=== PATIENT | female | born 1950 | race Hispanic/Latino ===

== ENCOUNTER 2021-01-06 09:21 | Emergency (ER) | payer BC, OTHER ==
--- OUTSIDE RECORDS SUMMARY | 2021-01-06 09:25 | XMS REPORT | Continuity of Care Document ---
:[address] [facility] t Address [address] [place] [address] Care Team Providers Name Role Phone Unavailable Unavailable Unavailable Problems This patient has no known problems. Allergies, Adverse Reactions, Alerts This patient has no known allergies or adverse reactions. Medications Ordered Filled Start Stop Current Ordering Indication Dosage Frequency Signature Comments Components Source Medication Medication Date Date Medication? Clinician (SIG) Name Name GlipiZIDE GlipiZIDE 2018-07 Yes Na Davis [address] [facility] meal [facility] Ciprodex Ciprodex Yes Na Davis [address] [facility] 2[facility]13 into [facility] 00:[facility]: affected [facility] 00 ear l [facility] Crestor Crestor 2017-07 Yes Na Davis [address] [facility] 1[facility]13 [facility]: [facility] Nicotine Nicotine 2017-07 Yes Na Davis [address] [facility] Step 1 Step 1 1-13 skin [facility] 00:[facility]: [facility] l [facility] Fosamax Fosamax 2019- No Na Davis [address] [facility] 7-19 05-12 [facility] - 00:00: 00:00 [facility] 00 :00 l [facility] Lancets Lancets Yes Na Davis one [facility] Super Thin Super Thin 4-12 Vega es - 00:00: [facility]oria 00 l [facility] blood blood 2020- No Na Davis one [facility] glucose glucose 4-12 02-06 [facility] - test strip test strip 00:00: 00:00 Memoria 00 :[address] [facility] [address] [facility] Alcohol Alcohol 2020- No Na Davis as [facility] Prep Pads Prep Pads 10-24 directed [facility] - 00:00: 00:00 Memoria 00 :[address] [facility] [address] [facility] Ambien Ambien Yes Na Davis [address] [facility] at bedtime [facility] - as needed [facility] One Daily One Daily Yes Na Davis [address] [facility] Protonix Protonix Yes Na Davis [address] [facility] Cozaar Cozaar Yes Na Davis [address] [facility] FreeStyle FreeStyle Yes Na Davis USE ONE [facility] Lite Test Lite Test STRIP TO L ukes - TEST TWICE Memoria A DAY [facility] ent [facility] Yes Na Davis [address] FlexTouch FlexTouch [facility] Fenofibrate Fenofibrate Yes Na Davis [address] [facility] with food [facility] Metformin Metformin Yes Na Davis [address] [facility] HCl [facility] Plavix Plavix Yes Na Davis [address] [facility] Nicotine Nicotine Yes Na Davis [address] [facility] Step 1 Step 1 skin [facility] Immunizations Ordered Filled Immunization Date Status Comments [facility] e Immunization Name Name FluAD FluAD 2019-05-[address] [facility] 00:[facility]00 [facility] Prevnar 13 Prevnar 13 2018-05-[address] [facility] - -Pneumonia Vaccine -Pneumonia Vaccine 00:00:00 [facility] FluAD FluAD 2018-05-[address] [facility]00 [facility] Procedures This patient has no known procedures. Encounters Start End Encounter Admission Attending Care Care Encounter Source Date/Time Date/Time Type Type Clinicians Facility Department ID 2020-07-27 2020-07-27 [facility] [id number] 2020-07-12 2020-07-12 Outpatient [facility] [id number] [facility] 2020-06-24 2020-06-24 [facility] [id number] [facility] 2020-06-16 2020-06-16 Out[facility] [id number] [facility] 2020-06-13 2020-06-13 Out[facility] [id number] [facility] 2020-03-29 2020-03-29 [facility] [id number] 2019-08-11 2019-08-11 [facility] [id number] [address] 08:20:00 08:20:00 t [employer] [facility] Medicine l Medicine Outpati ent Clinics 2019-08-03 2019-08-03 [facility] [id number] 16:22:00 16:22:00 t [employer] - Drive [facility] Medicine l Medicine Outpati ent Clinics 2019-06-17 2019-06-17 [facility] [id number] [address] 09:54:00 09:54:00 t [employer] - Drive [facility] Family Medicine l Medicine Outpati ent Clinics 2019-05-11 2019-05-11 [facility] [id number] 09:20:00 09:20:00 t [employer] - Drive [facility] Family Medicine l Medicine Outpati ent Clinics 2019-01-06 2019-01-06 [facility] [id number] 14:40:00 14:40:[address] [facility] Medicine l Medicine Outpati ent Clinics 2018-08-27 2018-08-27 [facility] [id number] 08:15:00 08:15:00 t [employer] [facility] Outpati ent Clinics 2018-05-27 2018-05-27 [facility] [id number] 09:15:00 09:15:00 t [employer] [facility] 2018-01-30 2018-01-30 [facility] [id number] 10:00:00 10:00:00 [employer] [facility] 2017-10-24 2017-10-24 [facility] [id number] 15:30:00 15:30:00 t [employer] [facility] Results This patient has no known results.
[2021-01-06 10:00] LABS: Urine Blood Trace-intact (Negative); Urine Glucose Negative (Negative); Urine Protein Negative (Negative)
[2021-01-06] MEDS ORDERED: MORPHINE 2 MG/ML SYR ONE (10:16)
[2021-01-06] MEDS ORDERED: NA CHLORIDE 0.9% 1,000 ML ONE (10:16)
[2021-01-06] MEDS ORDERED: ONDANSETRON 4 MG/2 ML VIAL ONE (10:16)
[2021-01-06 10:29] LABS: Absolute Lymphocytes (CBC) 1.7 K/uL (0.7-4.9); Basophils % 0.6 % (0-1.3); Hematocrit 38.8 % (36.0-45.0); MPV 9.6 fL (7.6-11.3); RBC Red Blood Cell Count 4.34 M/uL (3.86-4.86)
[2021-01-06 11:26] LABS: Albumin 4.4 g/dL (3.4-5.0); Bilirubin Direct 0.1 mg/dL (0-0.2); Bilirubin Total 0.4 mg/dL (0.2-1.0); Potassium 4.1 mmol/L (3.5-5.1); Protein, Total 7.5 g/dL (6.4-8.2)
[2021-01-06 11:55] LABS: Urine Bacteria <20 /HPF (<20); Urine RBC <5 /HPF (NONE SEEN)
--- NOTE | 2021-01-06 11:55 | RAD REPORT ---
EXAM DESCRIPTION: CT - Abdomen Pelvis W Contrast - 01/06/2021 11:36 am CLINICAL HISTORY: Abdominal pain COMPARISON: none. TECHNIQUE: Computed axial tomography of the abdomen pelvis was obtained. 100 cc Isovue-300 was admin istered intravenously. Oral contrast was not requested which limits evaluation of bowel. All CT scans are performed using dose optimization technique as appropriate and may include automated exposure control or mA/KV adjustment according to patient size. FINDINGS: Fatty liver. Hepatomegaly. The spleen, pancreas, adrenals are unremarkable. Mild right hydronephrosis. Tiny right renal calculi and small renal cysts. 3.3 centimeter calculus is present within the bladder. A portion abuts the right UVJ. Small left renal calculi. Mild left hydronephrosis. 1.1 centimeter calculus within the posterior left bladder near midline. Diverticula stem from the colon. Mild stranding adjacent to the sigmoid colon indicative of diverticu litis. Small right inguinal hernia contains fat Small ventral hernia contains fat. 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 A portion abuts the right UVJ. Mild right hy dronephrosis 1.1 centimeter calculus within the posterior left bladder near midline probably has recently passed f rom the left ureter. Mild left hydronephrosis Mild sigmoid diverticulitis Fatty infiltration with hepatomegaly
--- NOTE | 2021-01-06 12:28 | ER ---
Nurse's Notes [facility] Name: Rosalia Perez Age: 70 yrs Sex: Female : 1950 Arrival Date: 01/06/2021 Time: 09:24 Bed 20 Private MD: Diagnosis: Calculus of kidney;Calculus in bladder-multiple;Diverticulitis of large intestine without perforation or abscess without bleeding Presentation: 01/06 09:35 Chief complaint: Patient states: Pain in left lower quadrant of abdomen radiating to kg left flank and back x 1month. Coronavirus screen: Client denies travel out of the [place] in the last 14 days. At this time, unable to obtain information related to travel outside the [place] At this time, the client does not indicate any symptoms associated with coronavirus-19. Ebola Screen: Patient negative for fever greater than or equal to 101.5 degrees Fahrenheit, and additional compatible Ebola Virus Disease symptoms Patient denies exposure to infectious person. Patient denies travel to an Ebola-affected area in the 21 days before illness onset. Initial Sepsis Screen: Does the patient meet any 2 criteria? No. Patient's initial sepsis screen is negative. Does the patient have a suspected source of infection? No. Patient's initial sepsis screen is negative. Risk Assessment: Do you want to hurt yourself or someone else? Patient reports no desire to harm self or others. Onset of symptoms was December 06, 2020. 09:35 Method Of Arrival: Ambulatory kg 09:35 Acuity: JUDE 3 kg Historical: - Allergies: 09:39 No Known Allergies; kg - PMHx: 09:39 Diabetes - NIDDM; Hyperlipidemia; Hypertension; breast cancer; kg - PSHx: 09:39 Mastectomy, Left; kg - Immunization history:: Adult Immunizations up to date, Client reports receiving the 2nd dose of the Covid vaccine. - Social history:: Smoking status: Patient denies any tobacco usage or history of. Screenin:46 Abuse screen: Denies threats or abuse. Denies injuries from another. Nutritional kg screening: No deficits noted. Tuberculosis screening: No symptoms or risk factors identified. Fall Risk None identified. No fall in past 12 months (0 pts). No secondary diagnosis (0 pts). IV access (20 points). Ambulatory Aid- None/Bed Rest/Nurse Assist (0 pts). Gait- Normal/Bed Rest/Wheelchair (0 pts) Mental Status- Oriented to own ability (0 pts). Total [place] Fall Scale indicates No Risk (0-24 pts). Assessment: 09:40 General: Appears in no apparent distress. Behavior is calm, cooperative, appropriate kg for age, quiet. Pain: Complains of pain in left lower quadrant Pain radiates to left low back and left mid back,left flank Pain currently is 7 out of 10 on a pain scale. at worst was 10 out of 10 on a pain scale. level that patient reports is acceptable is 3 out of 10 on a pain scale. Quality of pain is described as aching, crampy, sharp, shooting, Pain began one month ago. Neuro: No deficits noted. Level of Consciousness is awake, alert, obeys commands, Oriented to person, place, time, situation, Appropriate for age. Cardiovascular: No deficits noted. Heart tones S1 S2 Capillary refill < 3 seconds. Respiratory: No deficits noted. Airway is patent Trachea midline Respiratory effort is even, unlabored, relaxed, Respiratory pattern is regular, symmetrical, Breath sounds are clear bilaterally. GI: Abdomen is flat, Bowel sounds present X 4 quads. Abd is soft Reports lower abdominal pain, constipation. : No deficits noted. : No deficits noted. Reports urinary frequency. EENT: No deficits noted. EENT: No deficits noted. Derm: No deficits noted. Musculoskeletal: No deficits noted. 12:29 Reassessment: Patient appears in no apparent distress at this time. Patient and/or zb family updated on plan of care and expected duration. Pain level reassessed. Patient is alert, oriented x 3, equal unlabored respirations, skin warm/dry/pink. pain decreased. no n/v noted at this time. PO challenge completed. patient ambulatory. at bedside. IV medication infusing at this time. 12:30 Reassessment: d/c pending completion of IV medication. zb 13:06 Reassessment: Patient appears in no apparent distress at this time. Patient and/or zb family updated on plan of care and expected duration. Pain level reassessed. Patient is alert, oriented x 3, equal unlabored respirations, skin warm/dry/pink. patient d/c up ad sharad. Vital Signs: 09:31 BP 157 / 76; Pulse 85; Resp 17; Pulse Ox 100% on R/A; kg 09:35 BP 157 / 76; Pulse 88; Resp 18; Temp 98.5(O); Pulse Ox 99% on R/A; Weight 69.4 kg (R); kg Height 5 ft. 5 in. (165.10 cm) (R); Pain 7/10; 09:45 BP 153 / 64; Pulse 78; Resp 18; Pulse Ox 100% on R/A; kg 10:08 BP 137 / 60; Pulse 78; Resp 20; Pulse Ox 100% on R/A; kg 10:15 BP 157 / 67; Pulse 78; Resp 20; Pulse Ox 100% ; kg 10:30 BP 145 / 62; Pulse 73; Resp 20; Pulse Ox 100% ; kg 11:00 BP 145 / 63; Pulse 75; Resp 18; Pulse Ox 99% on R/A; kg 09:35 Body Mass Index 25.46 (69.40 kg, 165.10 cm) kg ED Course: 09:24 Patient arrived in ED. wm 09:28 Olvin Cho PA is PHCP. cp 09:28 Olvin Ward MD is Attending Physician. cp 09:35 Norma Hansen, MARCO is Primary Nurse. kg 09:38 Triage completed. kg 09:47 Arm band placed on right wrist. kg 09:47 Patient has correct armband on for positive identification. Placed in gown. Bed in low kg position. Call light in reach. Side rails up X2. Adult w/ patient. No stick or BP on left arm. 09:50 Inserted saline lock: 20 gauge in right forearm, using aseptic technique. kg 10:29 Basic Metabolic Panel Sent. kg 10:29 CBC with Diff Sent. kg 10:29 Hepatic Function Sent. kg 10:29 Lipase Sent. kg 11:35 CT Abd/Pelvis - IV Contrast Only In Process Unspecified. EDMS 12:27 Kristian Alvarado MD is Referral Physician. cp 13:06 No provider procedures requiring assistance completed. IV discontinued, intact, zb bleeding controlled, No redness/swelling at site. Pressure dressing applied. 13:07 Primary Nurse role handed off by Norma Hansen, RN zb 13:07 Steffany Gómez RN is Primary Nurse. zb Administered Medications: 10:11 Drug: NS 0.9% 500 ml Route: IV; Rate: bolus; Site: right forearm; kg 12:29 Follow up: Response: No adverse reaction; IV Status: Completed infusion; IV Intake: zb 500ml 10:11 Drug: morphine 2 mg Route: IVP; Site: right forearm; kg 12:29 Follow up: Response: No adverse reaction; Marked relief of symptoms; Pain is decreased zb 10:11 Drug: Zofran (Ondansetron) 4 mg Route: IVP; Site: right forearm; kg 12:28 Follow up: Response: No adverse reaction; Marked relief of symptoms; Nausea is decreasedzb 12:28 Drug: metroNIDAZOLE 500 mg Volume: 100 ml; Route: IVPB; Infused Over: 30 mins; Site: zb right antecubital; 13:07 Follow up: Response: No adverse reaction; Marked relief of symptoms; IV Status: zb Completed infusion; IV Intake: 100ml 12:28 Drug: Cipro (ciprofloxacin) 500 mg Route: PO; zb 13:07 Follow up: Response: No adverse reaction zb Intake: 12:29 IV: 500ml; Total: 500ml. zb 13:07 IV: 100ml; Total: 600ml. zb Outcome: 12:27 Discharge ordered by MD. cp 13:06 Discharged to home ambulatory, with family. zb 13:06 Condition: stable 13:06 Discharge instructions given to patient, family, Instructed on discharge instructions, follow up and referral plans. medication usage, Demonstrated understanding of instructions, follow-up care, medications, Prescriptions given X 4. 13:08 Patient left the ED. zb Signatures: Dispatcher [employer] EDMS Olvin Cho PA PA cp Brown, Zipporah, RN RN zNorma Escalona RN RN kg Norma Hobson Corrections: (The following items were deleted from the chart) 12:31 12:29 Reassessment: Patient appears in no apparent distress at this time. Patient zb and/or family updated on plan of care and expected duration. Pain level reassessed. Patient is alert, oriented x 3, equal unlabored respirations, skin warm/dry/pink. pain decreased. no n/v noted at this time. patient ambulatory. at bedside. IV medication infusing at this time. zb
--- NOTE | 2021-01-06 12:28 | EDPHYS ---
Physician Documentation [facility] Name: Rosalia Perez Age: 70 yrs Sex: Female : 1950 Arrival Date: 01/06/2021 Time: 09:24 Bed 20 Private MD: ED Physician Olvin Ward HPI: 01/06 09:38 This 70 yrs old Female presents to ER via Ambulatory with complaints of cp Abdominal Pain - LEFT SIDE. 09:38 The patient presents with abdominal pain in the left lower quadrant. cp 09:38 Onset: The symptoms/episode began/occurred 1 month(s) ago, and became persistent 3 days cp ago. The symptoms radiate to the left flank. Associated signs and symptoms: Pertinent negatives: nausea and vomiting, blood in stools, constipation, diarrhea, dysuria, fever. The symptoms are described as intermittent. 09:38 Severity of pain: in the emergency department the pain is unchanged despite home cp interventions. Historical: - Allergies: 09:39 No Known Allergies; kg - PMHx: 09:39 Diabetes - NIDDM; Hyperlipidemia; Hypertension; breast cancer; kg - PSHx: 09:39 Mastectomy, Left; kg - Immunization history:: Adult Immunizations up to date, Client reports receiving the 2nd dose of the Covid vaccine. - Social history:: Smoking status: Patient denies any tobacco usage or history of. ROS: 09:45 Abdomen/GI: Positive for abdominal pain, Negative for vomiting, diarrhea, black/tarry cp stool, rectal bleeding. 09:45 Eyes: Negative for injury, pain, redness, and discharge. cp 09:45 Constitutional: Negative for body aches, chills, fever. 09:45 Cardiovascular: Negative for chest pain. 09:45 Respiratory: Negative for cough, shortness of breath, wheezing. 09:45 Back: Positive for radiated pain, of the left flank. 09:45 : Negative for urinary symptoms. 09:45 Neuro: Negative for dizziness, numbness, weakness. 09:45 All other systems are negative. Exam: 09:50 Constitutional: The patient appears in no acute distress, alert, awake, non-toxic, well cp developed, well nourished. 09:50 Head/Face: Normocephalic, atraumatic. cp 09:50 Eyes: Periorbital structures: appear normal, Conjunctiva: normal, no exudate, no injection, Sclera: no appreciated abnormality, Lids and lashes: appear normal, bilaterally. 09:50 ENT: External ear(s): are unremarkable, Nose: is normal, Mouth: Lips: moist, Oral mucosa: moist, Posterior pharynx: Airway: no evidence of obstruction, patent. 09:50 Chest/axilla: Inspection: normal. 09:50 Cardiovascular: Rate: normal, Rhythm: regular, Edema: is not appreciated, JVD: is not appreciated. 09:50 Respiratory: the patient does not display signs of respiratory distress, Respirations: normal, no use of accessory muscles, no retractions, labored breathing, is not present, Breath sounds: are clear throughout, no decreased breath sounds, no stridor, no wheezing. 09:50 Abdomen/GI: Inspection: abdomen appears normal, Bowel sounds: active, all quadrants, Palpation: soft, in all quadrants, mild abdominal tenderness, in the left lower quadrant, rebound tenderness, is not appreciated, voluntary guarding, is not appreciated, involuntary guarding, is not appreciated. 09:50 Back: CVA tenderness, is absent. 09:50 Skin: no rash present. Vital Signs: 09:31 BP 157 / 76; Pulse 85; Resp 17; Pulse Ox 100% on R/A; kg 09:35 BP 157 / 76; Pulse 88; Resp 18; Temp 98.5(O); Pulse Ox 99% on R/A; Weight 69.4 kg (R); kg Height 5 ft. 5 in. (165.10 cm) (R); Pain 7/10; 09:45 BP 153 / 64; Pulse 78; Resp 18; Pulse Ox 100% on R/A; kg 10:08 BP 137 / 60; Pulse 78; Resp 20; Pulse Ox 100% on R/A; kg 10:15 BP 157 / 67; Pulse 78; Resp 20; Pulse Ox 100% ; kg 10:30 BP 145 / 62; Pulse 73; Resp 20; Pulse Ox 100% ; kg 11:00 BP 145 / 63; Pulse 75; Resp 18; Pulse Ox 99% on R/A; kg 09:35 Body Mass Index 25.46 (69.40 kg, 165.10 cm) kg MDM: 09:34 Patient medically screened. cp 10:00 Differential diagnosis: Pyelonephritis, Ureterolithiasis, urinary tract infection, cp diverticulitis. 12:07 ED course: review of [place] prescription monitor program website shows narcotic score cp 080, sedative score 181 and overdose risk score 000. 12:25 Data reviewed: vital signs, nurses notes, lab test result(s), radiologic studies, CT cp scan. 12:25 Counseling: I had a detailed discussion with the patient and/or guardian regarding: the cp historical points, exam findings, and any diagnostic results supporting the discharge/admit diagnosis, lab results, radiology results. 12:26 Response to treatment: the patient's symptoms have markedly improved after treatment, cp VSS. Pain improved with meds. Will discharge to home for continued monitoring. 01/06 09:39 Order name: Basic Metabolic Panel; Complete Time: 12:01 01/06 12:01 Interpretation: Normal except: GLUC 190; GFR 72. 01/06 09:39 Order name: CBC with Diff; Complete Time: 11:14 01/06 11:14 Interpretation: Reviewed. 01/06 09:39 Order name: Hepatic Function; Complete Time: 12:01 01/06 12:01 Interpretation: Normal except: AST 14. 01/06 09:39 Order name: Lipase; Complete Time: 12:01 01/06 09:39 Order name: Urine Microscopic Only; Complete Time: 12:01 01/06 09:59 Order name: Urine Dipstick-Ancillary; Complete Time: 10:17 EDMS 01/06 10:30 Interpretation: Normal except: UBLD Trace-intact; UESTR Trace. 01/06 09:39 Order name: IV Saline Lock; Complete Time: 10:11 01/06 09:39 Order name: Labs collected and sent; Complete Time: 10:12 01/06 10:17 Order name: CT Abd/Pelvis - IV Contrast Only; Complete Time: 12:01 01/06 09:39 Order name: Urine Dipstick-Ancillary (obtain specimen); Complete Time: 10:11 01/06 12:04 Order name: PO challenge; Complete Time: 12:28 cp Administered Medications: 10:11 Drug: NS 0.9% 500 ml Route: IV; Rate: bolus; Site: right forearm; kg 12:29 Follow up: Response: No adverse reaction; IV Status: Completed infusion; IV Intake: zb 500ml 10:11 Drug: morphine 2 mg Route: IVP; Site: right forearm; kg 12:29 Follow up: Response: No adverse reaction; Marked relief of symptoms; Pain is decreased zb 10:11 Drug: Zofran (Ondansetron) 4 mg Route: IVP; Site: right forearm; kg 12:28 Follow up: Response: No adverse reaction; Marked relief of symptoms; Nausea is decreasedzb 12:28 Drug: metroNIDAZOLE 500 mg Volume: 100 ml; Route: IVPB; Infused Over: 30 mins; Site: zb right antecubital; 13:07 Follow up: Response: No adverse reaction; Marked relief of symptoms; IV Status: zb Completed infusion; IV Intake: 100ml 12:28 Drug: Cipro (ciprofloxacin) 500 mg Route: PO; zb 13:07 Follow up: Response: No adverse reaction zb Disposition: 15:12 Co-signature as Attending Physician, Olvin Ward MD I agree with the assessment and heidy plan of care. Disposition: 01/06/21 12:27 Discharged to Home. Impression: Calculus of kidney, Calculus in bladder - multiple, Diverticulitis of large intestine without perforation or abscess without bleeding. - Condition is Stable. - Discharge Instructions: High-Fiber Diet, Diverticulitis, Kidney Stones. - Prescriptions for Zofran 4 mg Oral Tablet - take 1 tablet by ORAL route every 12 hours As needed; 20 tablet. Cipro 500 mg Oral Tablet - take 1 tablet by ORAL route every 12 hours for 10 days; 20 tablet. Metronidazole 500 mg Oral Tablet - take 1 tablet by ORAL route every 8 hours; 30 tablet. Tramadol 50 mg Oral Tablet - take 1 tablet by ORAL route every 8 hours as needed; 12 tablet. - Medication Reconciliation Form, Thank You Letter, Antibiotic Education, Prescription Opioid Use form. - Follow up: Kristian Alvarado MD; When: 2 - 3 days; Reason: Recheck today's complaints. Signatures: Dispatcher [employer] Olvin Huff MD MD cha Page, Corey, PA PA cp Brown, Zipporah, RN RN zb Graham, Kristen, RN RN kg Corrections: (The following items were deleted from the chart) 12:44 12:27 01/06/2021 12:27 Discharged to Home. Impression: Diverticular disease of cp intestine. Condition is Stable. Forms are Medication Reconciliation Form, Thank You Letter, Antibiotic Education, Prescription Opioid Use. Follow up: Kristian Alvarado; When: 2 - 3 days; Reason: Recheck today's complaints. cp 13:08 12:44 01/06/2021 12:27 Discharged to Home. Impression: Calculus of kidney; Calculus in zb bladder - multiple; Diverticulitis of large intestine without perforation or abscess without bleeding. Condition is Stable. Forms are Medication Reconciliation Form, Thank You Letter, Antibiotic Education, Prescription Opioid Use. Follow up: Kristian Alvarado; When: 2 - 3 days; Reason: Recheck today's complaints. cp
[2021-01-06] MEDS ORDERED: CIPROFLOXACIN 400mg IV 0 MG/0 ML BAG IV ONE (12:37)
[2021-01-06] MEDS ORDERED: METRONIDAZOLE 500mg IVPB 500 MG/100 ML BAG IV ONE (12:37)
[2021-01-06] MEDS ORDERED: CIPROFLOXACIN HCL 500 MG TAB ONE (12:44)
[2021-01-06 13:16] VITALS: TEMP 98.5
[2021-01-06 13:24] VITALS: BP 145/63; O2SAT 99
== END 2021-01-06 13:08 | disposition home or self-care (01) ==
LOC: ER 09:21
DX: N20.0 Calculus of kidney (principal); N21.0 Calculus in bladder; K57.32 Diverticulitis of large intestine without perforation or abscess without bleeding; I10 Essential (primary) hypertension; Z85.3 Personal history of malignant neoplasm of breast; Z90.12 Acquired absence of left breast and nipple
CPT/HCPCS: 85025; 80048; 36415; 80076; 83690; 74177; Q9967; J2270; J7030; J2405; 81003; 81015; 96361; 96365; 96375; 99284; J0744

== ENCOUNTER 2022-05-06 10:15 | Emergency (ER) | payer OTHER ==
--- OUTSIDE RECORDS SUMMARY | 2022-05-06 10:19 | XMS REPORT | Continuity of Care Document ---
:1950 Author Organization [facility] t Address [address] [place] [address] Care Team Providers Name Role Phone Ratna Davis Primary Care Physician Ratna Davis Attending Clinician Unavailable TATIANNA GARCIA Attending Clinician Unavailable Doctor Unassigned, [place] Attending Clinician Unavailable Tatianna Garcia MD Attending Clinician Nurse, Adc Pob Immunization Attending Clinician Unavailable Christopher Lowery DO Attending Clinician Amelia-Mbayo_A_AH Attending Clinician Unavailable Ige-Odunuga_J_AH Attending Clinician Unavailable Amelia-Mbayo_A_AH Admitting Clinician Unavailable Ige-Odunuga_J_AH Admitting Clinician Unavailable Payers Payer Name Policy Type Policy Number Effective Date Expiration Date S thuy[place] POS [id number] 2013 00:00:00 [facility] [place] [id number] 2020 PLUS CLASSIC NO 00:00:00 [facility] [id number] 2019 Common Spiri t 00:00:00 - [facility] C1 [id number] 2019 Common Spiri t 00:00:00 [facility] WellCare MCR C1 [id number] 2019 Common Spiri t 00:00:00 - [facility] WELLCARE OF [place] [id number] 2019 - [place] 00:00:00 (MEDICARE REPLACEMENT/ADV ANTAGE - HMO) Problems Condition Condition Condition Status Onset Resolution Last Treating Co mments Source Name Details Category Date Date Treatment Clinician Date [id number] Bladder Problem Common stones [facility] [id number] Ureterolit Problem Com mon hiasis [facility] [id number] 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 - [facility] e [facility] Insomnia Insomnia Problem Commo n [facility] Current Current Problem Common every day every day Spir it smoker smoker [facility] Diabetes Diabetes Problem Commo n mellitus mellitus [facility] Hypertensi Hypertensi Problem C ommon on on [facility] [id number] PAD Problem Common (periphera Spirit l artery - [facility]I disease) [facility] Hyperlipid Hyperlipem Problem C ommon aemia ia [facility] [id number] Osteoporos Problem Com mon is without Spirit current - [facility] pathologic [facility] fracture, Medical unspecifie Center d osteoporos is type [id number] Tobacco Problem Commo n use [facility] [id number] Tobacco Problem Common abuse Spirit counseling [facility] Kidney Kidney Problem Common stone stone [facility] [id number] Type 2 Problem Common diabetes Spirit mellitus - 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 - [facility]I insulin [facility] [id number] Anxiety Problem Common [facility] [id number] Diverticul Problem Co mmon itis [facility] Fatty Fatty Problem Common liver liver [facility] [id number] Gastritis Problem Commo n without Spirit bleeding, - [facility]I unspecifie [facility] chronicity Medica l , Center unspecifie d gastritis type No known No known Disease Unive rs active active ity of problems problems [facility] Allergies, Adverse Reactions, Alerts This patient has no known allergies or adverse reactions. Social History Social Habit Start Date Stop Date Quantity Comments Source History of Current Smoker Common Spi rit - Tobacco Use [facility] Sex Assigned At Common Sp mila - [facility] Exposure to 2021-11-19 2021-11-29 Not sure University of SARS-CoV-2 00:00:00 10:45:00 [facility] (event) Branch Tobacco use and 2021-11-02 2021-11-02 Never used Universit y of exposure 00:00:00 00:00:00 [facility] Smoking Status Start Date Stop Date Source Current Smoker 2022-03-28 00:00:00 [facility] Spiri [facility] Medications Ordered Filled Start Stop Current Ordering Indication Dosage Frequency Signature Comments Components Source Medication Medication Date Date Medication? Clinician (SIG) Name Name Nakia Rice No 1{table QD Ambien 10 MG MG 9-14 t_at_be MG 00:00: dtime_a 00 s_neede d} Ambien 10 Ambien 10 No 1{table QD Ambien 10 MG MG 9-14 t_at_be MG 00:00: dtime_a 00 s_neede d} Ambien 10 Asherien 10 No 1{table QD Ambien 10 MG MG 6-03 t_at_be MG 00:00: dtime_a 00 s_neede d} amLODIPine Yes 5mg Take 5 mg Un marisela 5 mg tablet 4-21 by mouth ity of 13:23: daily. [address] amLODIPine Yes 5mg Take 5 mg Un marisela 5 mg tablet 4-21 by mouth ity of 13:23: daily. [address] amLODIPine Yes 5mg Take 5 mg Un marisela 5 mg tablet 4-21 by mouth ity of 13:23: daily. [address] fenofibrate Yes 145mg Take 145 U nivers 145 mg 4-21 mg by ity of tablet 13:23: mouth. [address] metFORMIN Yes 500mg Take 500 Uni vers 500 mg 4-21 mg by ity of tablet 13:23: mouth. [address] fenofibrate 0 Yes 145mg Take 145 U nivers 145 mg 4-21 mg by ity of tablet 13:23: mouth. [address] metFORMIN 0 Yes 500mg Take 500 Uni vers 500 mg 4-21 mg by ity of tablet 13:23: mouth. [address] fenofibrate 0 Yes 145mg Take 145 U nivers 145 mg 4-21 mg by ity of tablet 13:23: mouth. [address] metFORMIN 0 Yes 500mg Take 500 Uni vers 500 mg 4-21 mg by ity of tablet 13:23: mouth. [address] pantoprazol Yes Univer s e 40 mg EC 3-28 ity of tablet 00:00: [address] pantoprazol 0 Yes Univer s e 40 mg EC 3-28 ity of tablet 00:00: [address] pantoprazol 0 Yes Univer s e 40 mg EC 3-28 ity of tablet 00:00: [address] Ambien 10 Ambien 10 0 No 1{table QD Ambien 10 MG MG 3-02 t_at_be MG 00:00: dtime_a 00 s_neede d} Ambien 10 Ambien 10 0 No 1{table QD Ambien 10 MG MG 3-02 t_at_be MG 00:00: dtime_a 00 s_neede d} clopidogreL 0 Yes Univer s 75 mg 3-02 ity of tablet 00:00: [address] rosuvastati 2021-0 Yes Univer s n 10 mg 3-02 ity of tablet 00:00: [address] SERTraline 2021-0 Yes Univers 50 mg 3-02 ity of tablet 00:00: [address] clopidogreL 2021-0 Yes Univer s 75 mg 3-02 ity of tablet 00:00: [address] rosuvastati 2021-0 Yes Univer s n 10 mg 3-02 ity of tablet 00:00: [address] SERTraline 2021-0 Yes Univers 50 mg 3-02 ity of tablet 00:00: [address] clopidogreL 2022-0 Yes Univer s 75 mg 3-02 ity of tablet 00:00: [facility] rosuvastati 2021-0 Yes Univer s n 10 mg 3-02 ity of tablet 00:00: [address] Branch SERTraline 2021-0 Yes Univers 50 mg 3-02 ity of tablet 00:00: [facility] Zolpidem Zolpidem 2021-0 No Zolpidem Tartrate 10 Tartrate 10 2-09 Tartrate MG MG 00:00: 10 MG 00 Zolpidem Zolpidem 2021-0 No Zolpidem Tartrate 10 Tartrate 10 2-09 Tartrate MG MG 00:00: 10 MG 00 Zolpidem Zolpidem 2021-0 No Zolpidem Tartrate 10 Tartrate 10 2-09 Tartrate MG MG 00:00: 10 MG 00 glipiZIDE 2021-0 Yes 10mg Take 10 mg Un marisela 10 mg 2-02 by mouth ity of tablet 00:00: daily. [facility] glipiZIDE 2021-0 Yes 10mg Take 10 mg Un marisela 10 mg 2-02 by mouth ity of tablet 00:00: daily. [facility] glipiZIDE 2021-0 Yes 10mg Take 10 mg Un marisela 10 mg 2-02 by mouth ity of tablet 00:00: daily. [address] losartan 2-0 Yes Univers 100 mg 2-01 ity of tablet 00:00: [address] losartan 2-0 Yes Univers 100 mg 2-01 ity of tablet 00:00: [address] losartan 2-0 Yes Univers 100 mg 2-01 ity of tablet 00:00: [address] GlipiZIDE GlipiZIDE 2019-1 Yes Na Davis 1 tablet Common 0-28 with main Spirit 00:00: meal - [facility]I 00 [facility] Ciprodex Ciprodex 2019-0 Yes Na Davis 4 drops Common 2-13 into Spirit 00:00: affected - CHI 00 ear [facility] Crestor Crestor 2018-1 Yes Na Davis 1 tablet Common 1-13 Spirit 00:00: - CHI 00 [facility] Nicotine Nicotine 2018- Yes Na Davis 1 patch to Common Step 1 Step 1 1-13 skin Spirit 00:00: - CHI 00 [facility] Fosamax Fosamax 2017-0 2019- No Na Davis 1 tablet Common 01-30 Spirit 00:00: 00:00 - CHI 00 :00 [facility] Lancets Lancets Yes Na Davis one Comm on Super Thin Super Thin 10-24 Spi rit 00:00: - [facility] blood blood 2020- No Na Davis one Common glucose glucose 10-24 Spirit test strip test strip 00:00: 00:00 - CHI 00 :00 [facility] Alcohol Alcohol 2020- No Na Davis as Com mon Prep Pads Prep Pads 10-24 directed Spirit 00:00: 00:00 - CHI 00 :00 [facility] Ambien Ambien Yes Na Davis 1 tablet Comm on at bedtime [facility] as needed [facility] One Daily One Daily Yes Na Davis 1 tablet [facility] Protonix Protonix Yes Na Davis 1 tablet [facility] Cozaar Cozaar Yes Na Davis 1 tablet Comm on [facility] FreeStyle FreeStyle Yes Na Davis USE ONE Common Lite Test Lite Test STRIP TO S pirit TEST TWICE - CHI A DAY [facility] Na Davis 10 units Co mmon FlexTouch FlexTouch Spiri [facility] Fenofibrate Fenofibrate Yes Na Davis 1 tablet Common with food [facility] Metformin Metformin Yes Na Davis 1 tablet Common HCl HCl with meals [facility] Plavix Plavix Yes Na Davis 1 tablet Comm on [facility] Nicotine Nicotine Yes Na Davis 1 patch to Common Step 1 Step 1 skin [facility] Plavix 75 Plavix 75 No 1{table QD Plavix 75 MG MG t} MG glipiZIDE 5 glipiZIDE 5 No 1{table BID glipiZIDE MG MG t_with_ 5 MG food} blood blood No blood glucose glucose glucose test strip test strip test strip n/s n/s n/s Fosamax 70 Fosamax 70 No 1{table Fosamax 70 MG MG t} MG Zoloft 50 Zoloft 50 No 1{table QD Zoloft 50 MG MG t} MG Ambien 10 Ambien 10 No 1{table QD Ambien 10 MG MG t_at_be MG dtime_a s_neede d} One Daily - One Daily - No 1{table QD One Daily t} - Crestor 10 Crestor 10 No 1{table QD Crestor 10 MG MG t} MG OneTouch OneTouch No OneTouch Verio - Verio - Verio - glipiZIDE glipiZIDE No QD glipiZIDE 10 MG 10 MG 10 MG Plavix 75 Plavix 75 No 1{table QD Plavix 75 MG MG t} MG Ciprodex Ciprodex No 4{drops BID Ciprodex 0.3-0.1 % 0.3-0.1 % _into_a 0.3-0.1 % ffected _ear} glipiZIDE glipiZIDE No QD glipiZIDE 10 MG 10 MG 10 MG One Daily - One Daily - No 1{table QD One Daily t} - Nicotine Nicotine No 1{patch QD Nicotine Step 1 21 Step 1 _to_ski Step 1 21 MG/24HR MG/24HR n} MG/24HR glipiZIDE 5 glipiZIDE 5 No 1{table BID glipiZIDE MG MG t_with_ 5 MG food} OneTouch OneTouch No OneTouch Verio - Verio - Verio - amLODIPine amLODIPine No 1{table QD amLODIPine Besylate 10 Besylate 10 t} Besylate MG MG 10 MG FreeStyle FreeStyle No FreeStyle Lite Test - Lite Test - Lite Test - Fosamax 70 Fosamax 70 No 1{table Fosamax 70 MG MG t} MG Protonix 20 Protonix 20 No 1{table QD Protonix MG MG t} 20 MG Cozaar 100 Cozaar 100 No 1{table QD Cozaar 100 MG MG t} MG Lancets Lancets No BID Lancets Super Thin Super Thin Super Thin n/s n/s n/s Nicotine Nicotine No 1{patch QD Nicotine Step 1 21 Step 1 21 _to_ski Step 1 21 MG/24HR MG/24HR n} MG/24HR metFORMIN metFORMIN No 1{table BID metFORMIN HCl 1000 MG HCl 1000 MG t_with_ HCl 1000 meals} MG Crestor 10 Crestor 10 No 1{table QD Crestor 10 MG MG t} MG Zoloft 50 Zoloft 50 No 1{table QD Zoloft 50 MG MG t} MG Ambien 10 Ambien 10 No 1{table QD Ambien 10 MG MG t_at_be MG dtime_a s_neede d} blood blood No blood glucose glucose glucose test strip test strip test strip n/s n/s n/s Fenofibrate Fenofibrate No 1{table QD Fenofibrat 145 MG 145 MG t_with_ e 145 MG food} glipiZIDE glipiZIDE No QD glipiZIDE 10 MG 10 MG 10 MG Nicotine Nicotine No 1{patch QD Nicotine Step 1 21 Step 1 to Step 1 21 MG/24HR MG/24HR n} MG/24HR Plavix 75 Plavix 75 No 1{table QD Plavix 75 MG MG t} MG Ciprodex Ciprodex No 4{drops BID Ciprodex 0.3-0.1 % 0.3-0.1 % _into_a 0.3-0.1 % ffected _ear} glipiZIDE 5 glipiZIDE 5 No glipiZIDE MG MG 5 MG Protonix 20 Protonix 20 No 1{table QD Protonix MG MG t} 20 MG OneTouch OneTouch No OneTouch Verio - Verio - Verio - Lancets Lancets No BID Lancets Super Thin Super Thin Super Thin n/s n/s n/s amLODIPine amLODIPine No amLODIPine Besylate 10 Besylate 10 Besylate MG MG 10 MG Nicotine Nicotine No 1{patch QD Nicotine Step 1 21 Step 1 to Step 1 21 MG/24HR MG/24HR n} MG/24HR blood blood No blood glucose glucose glucose test strip test strip test strip n/s n/s n/s Zoloft 50 Zoloft 50 No 1{table QD Zoloft 50 MG MG t} MG Fosamax 70 Fosamax 70 No 1{table Fosamax 70 MG MG t} MG metFORMIN metFORMIN No 1{table BID metFORMIN HCl 1000 MG HCl 1000 MG t_with_ HCl 1000 meals} MG Fenofibrate Fenofibrate No 1{table QD Fenofibrat 145 MG 145 MG t_with_ e 145 MG food} Losartan Losartan No Losartan Potassium Potassium Potassium 100 MG 100 MG 100 MG FreeStyle FreeStyle No FreeStyle Lite Test - Lite Test - Lite Test - One Daily - One Daily - No 1{table QD One Daily t} - Crestor 10 Crestor 10 No 1{table QD Crestor 10 MG MG t} MG Lancets Lancets No BID Lancets Super Thin Super Thin Super Thin n/s n/s n/s Nicotine Nicotine No 1{patch QD Nicotine Step 1 21 Step 1 21 _to_ski Step 1 21 MG/24HR MG/24HR n} MG/24HR glipiZIDE 5 glipiZIDE 5 No 1{table BID glipiZIDE MG MG t_with_ 5 MG food} Rosuvastati Rosuvastati No Rosuvastat n Calcium n Calcium in Calcium 10 MG 10 MG 10 MG Fenofibrate Fenofibrate No 1{table QD Fenofibrat 145 MG 145 MG t_with_ e 145 MG food} OneTouch OneTouch No OneTouch Verio - Verio - Verio - amLODIPine amLODIPine No amLODIPine Besylate 10 Besylate 10 Besylate MG MG 10 MG metFORMIN metFORMIN No 1{table BID metFORMIN HCl 1000 MG HCl 1000 MG t_with_ HCl 1000 meals} MG One Daily - One Daily - No 1{table QD One Daily t} - glipiZIDE glipiZIDE No QD glipiZIDE 10 MG 10 MG 10 MG glipiZIDE 5 glipiZIDE 5 No glipiZIDE MG MG 5 MG blood blood No blood glucose glucose glucose test strip test strip test strip n/s n/s n/s amLODIPine amLODIPine No 1{table QD amLODIPine Besylate 10 Besylate 10 t} Besylate MG MG 10 MG Fosamax 70 Fosamax 70 No 1{table Fosamax 70 MG MG t} MG FreeStyle FreeStyle No FreeStyle Lite Test - Lite Test - Lite Test - Zoloft 50 Zoloft 50 No 1{table QD Zoloft 50 MG MG t} MG Protonix 20 Protonix 20 No 1{table QD Protonix MG MG t} 20 MG Cozaar 100 Cozaar 100 No 1{table QD Cozaar 100 MG MG t} MG Ciprodex Ciprodex No 4{drops BID Ciprodex 0.3-0.1 % 0.3-0.1 % _into_a 0.3-0.1 % ffected _ear} Plavix 75 Plavix 75 No 1{table QD Plavix 75 MG MG t} MG Losartan Losartan No Losartan Potassium Potassium Potassium 100 MG 100 MG 100 MG Nicotine Nicotine No 1{patch QD Nicotine Step 1 21 Step 1 21 _to_ski Step 1 21 MG/24HR MG/24HR n} MG/24HR Lancets Lancets No BID Lancets Super Thin Super Thin Super Thin n/s n/s n/s Nicotine Nicotine No 1{patch QD Nicotine Step 1 21 Step 1 21 _to_ski Step 1 21 MG/24HR MG/24HR n} MG/24HR glipiZIDE 5 glipiZIDE 5 No 1{table BID glipiZIDE MG MG t_with_ 5 MG food} Rosuvastati Rosuvastati No Rosuvastat n Calcium n Calcium in Calcium 10 MG 10 MG 10 MG Fenofibrate Fenofibrate No 1{table QD Fenofibrat 145 MG 145 MG t_with_ e 145 MG food} OneTouch OneTouch No OneTouch Verio - Verio - Verio - amLODIPine amLODIPine No amLODIPine Besylate 10 Besylate 10 Besylate MG MG 10 MG metFORMIN metFORMIN No 1{table BID metFORMIN HCl 1000 MG HCl 1000 MG t_with_ HCl 1000 meals} MG One Daily - One Daily - No 1{table QD One Daily t} - glipiZIDE glipiZIDE No QD glipiZIDE 10 MG 10 MG 10 MG glipiZIDE 5 glipiZIDE 5 No glipiZIDE MG MG 5 MG blood blood No blood glucose glucose glucose test strip test strip test strip n/s n/s n/s amLODIPine amLODIPine No 1{table QD amLODIPine Besylate 10 Besylate 10 t} Besylate MG MG 10 MG Fosamax 70 Fosamax 70 No 1{table Fosamax 70 MG MG t} MG FreeStyle FreeStyle No FreeStyle Lite Test - Lite Test - Lite Test - Zoloft 50 Zoloft 50 No 1{table QD Zoloft 50 MG MG t} MG Protonix 20 Protonix 20 No 1{table QD Protonix MG MG t} 20 MG Cozaar 100 Cozaar 100 No 1{table QD Cozaar 100 MG MG t} MG Ciprodex Ciprodex No 4{drops BID Ciprodex 0.3-0.1 % 0.3-0.1 % _into_a 0.3-0.1 % ffected _ear} Plavix 75 Plavix 75 No 1{table QD Plavix 75 MG MG t} MG Losartan Losartan No Losartan Potassium Potassium Potassium 100 MG 100 MG 100 MG Nicotine Nicotine No 1{patch QD Nicotine Step 1 21 Step 1 21 _to_ski Step 1 21 MG/24HR MG/24HR n} MG/24HR glipiZIDE 5 glipiZIDE 5 No glipiZIDE MG MG 5 MG metFORMIN metFORMIN No 1{table BID metFORMIN HCl 1000 MG HCl 1000 MG t_with_ HCl 1000 meals} MG glipiZIDE 5 glipiZIDE 5 No 1{table BID glipiZIDE MG MG t_with_ 5 MG food} Plavix 75 Plavix 75 No 1{table QD Plavix 75 MG MG t} MG OneTouch OneTouch No OneTouch Verio - Verio - Verio - Crestor 10 Crestor 10 No 1{table QD Crestor 10 MG MG t} MG Rosuvastati Rosuvastati No Rosuvastat n Calcium n Calcium in Calcium 10 MG 10 MG 10 MG blood blood No blood glucose glucose glucose test strip test strip test strip n/s n/s n/s Zoloft 50 Zoloft 50 No 1{table QD Zoloft 50 MG MG t} MG Cozaar 100 Cozaar 100 No 1{table QD Cozaar 100 MG MG t} MG Pantoprazol Pantoprazol No 1{table QD Pantoprazo e Sodium 20 e Sodium 20 t} le Sodium MG MG 20 MG Lancets Lancets No BID Lancets Super Thin Super Thin Super Thin n/s n/s n/s Fenofibrate Fenofibrate No 1{table QD Fenofibrat 145 MG 145 MG t_with_ e 145 MG food} amLODIPine amLODIPine No 1{table QD amLODIPine Besylate 10 Besylate 10 t} Besylate MG MG 10 MG Losartan Losartan No Losartan Potassium Potassium Potassium 100 MG 100 MG 100 MG metFORMIN metFORMIN No 1{table BID metFORMIN HCl 1000 MG HCl 1000 MG t_with_ HCl 1000 meals} MG Rosuvastati Rosuvastati No Rosuvastat n Calcium n Calcium in Calcium 10 MG 10 MG 10 MG Fenofibrate Fenofibrate No 1{table QD Fenofibrat 145 MG 145 MG t_with_ e 145 MG food} Plavix 75 Plavix 75 No 1{table QD Plavix 75 MG MG t} MG Crestor 10 Crestor 10 No 1{table QD Crestor 10 MG MG t} MG Losartan Losartan No Losartan Potassium Potassium Potassium 100 MG 100 MG 100 MG OneTouch OneTouch No OneTouch Verio - Verio - Verio - amLODIPine amLODIPine No 1{table QD amLODIPine Besylate 10 Besylate 10 t} Besylate MG MG 10 MG Pantoprazol Pantoprazol No 1{table QD Pantoprazo e Sodium 20 e Sodium 20 t} le Sodium MG MG 20 MG glipiZIDE 5 glipiZIDE 5 No glipiZIDE MG MG 5 MG Lancets Lancets No BID Lancets Super Thin Super Thin Super Thin n/s n/s n/s Cozaar 100 Cozaar 100 No 1{table QD Cozaar 100 MG MG t} MG glipiZIDE 5 glipiZIDE 5 No BID glipiZIDE MG MG 5 MG blood blood No blood glucose glucose glucose test strip test strip test strip n/s n/s n/s metFORMIN metFORMIN No 1{table BID metFORMIN HCl 1000 MG HCl 1000 MG t_with_ HCl 1000 meals} MG Rosuvastati Rosuvastati No Rosuvastat n Calcium n Calcium in Calcium 10 MG 10 MG 10 MG Fenofibrate Fenofibrate No 1{table QD Fenofibrat 145 MG 145 MG t_with_ e 145 MG food} Plavix 75 Plavix 75 No 1{table QD Plavix 75 MG MG t} MG Crestor 10 Crestor 10 No 1{table QD Crestor 10 MG MG t} MG Losartan Losartan No Losartan Potassium Potassium Potassium 100 MG 100 MG 100 MG OneTouch OneTouch No OneTouch Verio - Verio - Verio - amLODIPine amLODIPine No 1{table QD amLODIPine Besylate 10 Besylate 10 t} Besylate MG MG 10 MG Pantoprazol Pantoprazol No 1{table QD Pantoprazo e Sodium 20 e Sodium 20 t} le Sodium MG MG 20 MG glipiZIDE 5 glipiZIDE 5 No glipiZIDE MG MG 5 MG Lancets Lancets No BID Lancets Super Thin Super Thin Super Thin n/s n/s n/s Cozaar 100 Cozaar 100 No 1{table QD Cozaar 100 MG MG t} MG glipiZIDE 5 glipiZIDE 5 No BID glipiZIDE MG MG 5 MG blood blood No blood glucose glucose glucose test strip test strip test strip n/s n/s n/s Ciprodex Ciprodex No 4{drops BID Ciprodex 0.3-0.1 % 0.3-0.1 % _into_a 0.3-0.1 % ffected _ear} amLODIPine amLODIPine No 1{table QD amLODIPine Besylate 10 Besylate 10 t} Besylate MG MG 10 MG Protonix 20 Protonix 20 No 1{table QD Protonix MG MG t} 20 MG FreeStyle FreeStyle No FreeStyle Lite Test - Lite Test - Lite Test - Nicotine Nicotine No 1{patch QD Nicotine Step 1 21 Step 1 21 _to_ski Step 1 21 MG/24HR MG/24HR n} MG/24HR Lancets Lancets No BID Lancets Super Thin Super Thin Super Thin n/s n/s n/s Nicotine Nicotine No 1{patch QD Nicotine Step 1 21 Step 1 21 _to_ski Step 1 21 MG/24HR MG/24HR n} MG/24HR metFORMIN metFORMIN No 1{table BID metFORMIN HCl 1000 MG HCl 1000 MG t_with_ HCl 1000 meals} MG Cozaar 100 Cozaar 100 No 1{table QD Cozaar 100 MG MG t} MG Fenofibrate Fenofibrate No 1{table QD Fenofibrat 145 MG 145 MG t_with_ e 145 MG food} Plavix 75 Plavix 75 No 1{table QD Plavix 75 MG MG t} MG glipiZIDE 5 glipiZIDE 5 No 1{table BID glipiZIDE MG MG t_with_ 5 MG food} blood blood No blood glucose glucose glucose test strip test strip test strip n/s n/s n/s Fosamax 70 Fosamax 70 No 1{table Fosamax 70 MG MG t} MG Zoloft 50 Zoloft 50 No 1{table QD Zoloft 50 MG MG t} MG Ambien 10 Ambien 10 No 1{table QD Ambien 10 MG MG t_at_be MG dtime_a s_neede d} One Daily - One Daily - No 1{table QD One Daily t} - Crestor 10 Crestor 10 No 1{table QD Crestor 10 MG MG t} MG OneTouch OneTouch No OneTouch Verio - Verio - Verio - glipiZIDE glipiZIDE No QD glipiZIDE 10 MG 10 MG 10 MG Ciprodex Ciprodex No 4{drops BID Ciprodex 0.3-0.1 % 0.3-0.1 % _into_a 0.3-0.1 % ffected _ear} amLODIPine amLODIPine No 1{table QD amLODIPine Besylate 10 Besylate 10 t} Besylate MG MG 10 MG Protonix 20 Protonix 20 No 1{table QD Protonix MG MG t} 20 MG FreeStyle FreeStyle No FreeStyle Lite Test - Lite Test - Lite Test - Nicotine Nicotine No 1{patch QD Nicotine Step 1 21 Step 1 21 _to_ski Step 1 21 MG/24HR MG/24HR n} MG/24HR Lancets Lancets No BID Lancets Super Thin Super Thin Super Thin n/s n/s n/s Nicotine Nicotine No 1{patch QD Nicotine Step 1 21 Step 1 21 _to_ski Step 1 21 MG/24HR MG/24HR n} MG/24HR metFORMIN metFORMIN No 1{table BID metFORMIN HCl 1000 MG HCl 1000 MG t_with_ HCl 1000 meals} MG Cozaar 100 Cozaar 100 No 1{table QD Cozaar 100 MG MG t} MG Fenofibrate Fenofibrate No 1{table QD Fenofibrat 145 MG 145 MG t_with_ e 145 MG food} Immunizations Ordered Filled Immunization Date Status Comments Sourc e Immunization Name Name SARS-COV-2 COVID-19 2021-03-15 Completed Unive rsity of [facility]NA VACCINE 00:00:00 [facility] SARS-COV-2 COVID-19 2021-03-15 Completed Unive rsity of MODERNA VACCINE 00:00:00 [facility] SARS-COV-2 COVID-19 2021-03-15 Completed Unive rsity of MODERNA VACCINE 00:00:00 [facility] SARS-COV-2 COVID-19 2020-09-07 Completed Unive rsity of MODERNA VACCINE 00:00:00 [facility] SARS-COV-2 COVID-19 2020-09-07 Completed Unive rsity of MODERNA VACCINE 00:00:00 [facility] SARS-COV-2 COVID-19 2020-09-07 Completed Unive rsity of MODERNA VACCINE 00:00:00 [facility] SARS-COV-2 COVID-19 2020-08-10 Completed Unive rsity of MODERNA VACCINE 00:00:00 [facility] SARS-COV-2 COVID-19 2020-08-10 Completed Unive rsity of MODERNA VACCINE 00:00:00 [facility] SARS-COV-2 COVID-19 2020-08-10 Completed Unive rsity of MODERNA VACCINE 00:00:00 [facility] Influenza High Dose 2020-07-14 Completed Unive rsity of [place] 00:00:00 [facility] Influenza High Dose 2020-07-14 Completed Unive rsity of [place] 00:00:00 [facility] Influenza High Dose 2020-07-14 Completed Unive rsity of [facility] 00:00:00 [facility] FluAD FluAD 2019-05-11 Completed [facility] 10:11[facility]00 [facility] FluAD FluAD 2019-05-11 Completed [facility] - 10:11:00 [facility] FluAD FluAD 2019-05-11 Completed [facility] - 10:11:00 [facility] FluAD FluAD 2019-05-11 Completed [facility] - 10:11:00 [facility] FluAD FluAD 2019-05-11 Completed [facility] - 10:11:00 [facility] FluAD FluAD 2019-05-11 Completed [facility] - 10:11:00 [facility] FluAD FluAD 2019-05-11 [facility] 10:[facility]00 [facility] FluAD FluAD 2019-05-11 Completed [facility] 10:11:00 [facility] FluAD FluAD 2019-05-11 Completed [facility] 10:11:00 [facility] FluAD FluAD 2019-05-11 Completed [facility] - 00:00:00 [facility] Prevnar 13 Prevnar 13 2018-05-27 Completed [facility] - -Pneumonia Vaccine -Pneumonia Vaccine 09:48:00 [facility] Prevnar 13 Prevnar 13 2018-05-27 Completed [facility] - -Pneumonia Vaccine -Pneumonia Vaccine 09:48:00 [facility] Prevnar 13 Prevnar 13 2018-05-27 Completed [facility] - -Pneumonia Vaccine -Pneumonia Vaccine 09:48:00 [facility] Prevnar 13 Prevnar 13 2018-05-27 [facility]pleted [facility] - -Pneumonia Vaccine -Pneumonia Vaccine 09:48:00 [facility] Prevnar 13 Prevnar 13 2018-05-27 [facility]pleted [facility] - -Pneumonia Vaccine -Pneumonia Vaccine 09:48:00 [facility] Prevnar 13 Prevnar 13 2018-05-27 [facility]pleted [facility] - -Pneumonia Vaccine -Pneumonia Vaccine 09:48:00 [facility] Prevnar 13 Prevnar 13 2018-05-27 [facility]pleted [facility] - -Pneumonia Vaccine -Pneumonia Vaccine 09:48:00 [facility] Prevnar 13 Prevnar 13 2018-05-27 [facility]pleted [facility] - -Pneumonia Vaccine -Pneumonia Vaccine 09:48:00 [facility] Prevnar 13 Prevnar 13 2018-05-27 [facility]pleted [facility] - -Pneumonia Vaccine -Pneumonia Vaccine 09:48:00 [facility] FluAD FluAD 2018-05-27 Completed [facility] - 09:44:00 [facility] FluAD FluAD 2018-05-27 Completed [facility] - 09:44:00 [facility] FluAD FluAD 2018-05-27 Completed [facility] - 09:44:00 [facility] FluAD FluAD 2018-05-27 Completed [facility] - 09:44:00 [facility] FluAD FluAD 2018-05-27 Completed [facility] - 09:44:00 [facility] FluAD FluAD 2018-05-27 Completed [facility] - 09:44:00 [facility] FluAD FluAD 2018-05-27 Completed [facility] - 09:44:00 [facility] FluAD FluAD 2018-05-27 Completed [facility] - 09:44:00 [facility] FluAD FluAD 2018-05-27 Completed [facility] - 09:44:00 [facility] Prevnar 13 Prevnar 13 2018-05-27 Completed [facility] - -Pneumonia Vaccine -Pneumonia Vaccine 00:00:00 [facility] FluAD FluAD 2018-05-27 Completed [facility] - 00:00:00 [facility] Vital Signs Vital Name Observation Time Observation Value Comments Source height 2022-03-28 10:00:00 61.00 [in_i] [facility] weight 2022-03-28 10:00:00 140 [lb_av] [facility] bmi 2022-03-28 10:00:00 26.45 kg/m2 [facility] height 2021-12-15 09:40:00 61.00 [in_i] [facility] weight 2021-12-15 09:40:00 140 [lb_av] [facility] temperature 2021-12-15 09:40:00 97.3 [degF] [facility] bmi 2021-12-15 09:40:00 26.45 kg/m2 [facility] oximetry 2021-12-15 09:40:00 98 % [facility] respiratory rate 2021-12-15 09:40:00 18 /min Comm on [facility] blood pressure 2021-12-15 09:40:00 122 mm[Hg] [facility] - systolic [facility] blood pressure 2021-12-15 09:40:00 64 mm[Hg] [facility] - diastolic [facility] Systolic blood 2021-11-02 18:20:00 156 mm[Hg] [facility] Diastolic blood 2021-11-02 18:20:00 73 mm[Hg] Unive rsity of pressure [facility] Heart rate 2021-11-02 18:20:00 86 /min [facility] Respiratory rate 2021-11-02 18:20:00 19 /min [facility] 2021-11-02 18:20:[address] [facility] Body weight 2021-11-02 18:20:[address] [facility] BMI 2021-11-02 18:20:00 23.91 [facility] Oxygen saturation in 2021-11-02 18:20:00 100 /min [facility] Arterial blood by [facility] Pulse oximetry Branch height 2021-09-13 08:20:00 61.00 [in_i] [facility] weight 2021-09-13 08:20:00 158 [lb_av] [facility] bmi 2021-09-13 08:20:00 29.85 kg/m2 [facility] height 2021-08-30 13:30:00 61.00 [in_i] [facility] weight 2021-08-30 13:30:00 158 [lb_av] [facility] temperature 2021-08-30 13:30:00 97.8 [degF] [facility] bmi 2021-08-30 13:30:00 29.85 kg/m2 [facility] oximetry 2021-08-30 13:30:00 98 % [facility] respiratory rate 2021-08-30 13:30:00 16 /min Comm on [facility] blood pressure 2021-08-30 13:30:00 165 mm[Hg] [facility] - systolic [facility] blood pressure 2021-08-30 13:30:00 72 mm[Hg] [facility] - diastolic [facility] height 2021-04-17 10:00:00 61.00 [in_i] [facility] weight 2021-04-17 10:00:00 144 [lb_av] [facility] bmi 2021-04-17 10:00:00 27.21 kg/m2 [facility] height 2021-04-17 14:40:00 61.00 [in_i] [facility] weight 2021-04-17 14:40:00 139.4 [lb_av] [facility] temperature 2021-04-17 14:40:00 98.0 [degF] [facility] bmi 2021-04-17 14:40:00 26.34 kg/m2 [facility] oximetry 2021-04-17 14:40:00 97 % [facility] blood pressure 2021-04-17 14:40:00 148 mm[Hg] [facility] - systolic [facility] blood pressure 2021-04-17 14:40:00 68 mm[Hg] [facility] - diastolic [facility] Procedures Procedure Date / Time Performing Clinician Source Performed INSURANCE CORRESPONDENCE 2021-11-28 05:01:00 Doctor Unassigned, [facility] Name [facility] INSURANCE CORRESPONDENCE 2021-11-27 05:01:00 Doctor Unassigned, [facility] EKG-12 LEAD 2021-11-02 18:17:43 Tatianna Garcia [facility] Encounters Start End Encounter Admission Attending Care Care Encounter Source Date/Time Date/Time Type Type Clinicians Facility Department ID 2022-04-20 Outpatient Davis, Na STLMLC STLMLC [id number] [facility] 09:00:00 [facility] 2022-03-26 Outpatient Davis, Na STLMLC STLMLC [id number] [facility] 07:53:00 [facility] 2022-03-15 Outpatient Davis, Na STLMLC STLMLC [id number] [facility] 10:38:00 [facility] 2021-12-13 Outpatient Davis, Na STLMLC STLMLC [id number] 2 [facility] 08:45:01 [facility] 2021-10-16 Outpatient Davis, Na STLMLC STLMLC [id number] 2 [facility] 11:11:00 [facility] 2021-08-17 Outpatient MDA DANA [id number] 17:41:23 Anderso n 2021-08-09 Outpatient Davis, Na STLMLC STLMLC [id number] 2 [facility] 13:32:34 [id number] [facility] 2021-08-09 Outpatient Davis, Na STLMLC STLMLC [id number] 2 [facility] 12:27:45 [id number] [facility] 2021-08-09 Outpatient Davis, Na STLMLC STLMLC [id number] 2 [facility] 12:10:16 [id number] [facility] 2021-08-09 Outpatient Davis, Na STLMLC STLMLC [id number] 2 Common 12:09:38 [id number] [facility] 2021-08-09 Outpatient Davis, Na STLMLC STLMLC [id number] 2 Common 11:19:17 [id number] [facility] 2021-08-09 Outpatient Davis, Na STLMLC STLMLC [id number] 2 Common 11:19:13 [id number] [facility] 2021-08-09 Outpatient Davis, Na STLMLC STLMLC [id number] 2 Common 11:18:10 [id number] [facility] 2021-08-09 Outpatient Davis, Na STLMLC STLMLC [id number] 2 Common 11:05:40 [id number] [facility] 2021-08-09 Outpatient Davis, Na STLMLC STLMLC [id number] 2 Common 11:03:36 [id number] [facility] 2021-08-09 Outpatient Davis, Na STLMLC STLMLC [id number] 2 Common 11:01:58 [id number] [facility] 2022-11-06 2022-11-06 Outpatient R JOSE, AKMB [facility] [id number] Univers 13:00:00 13:00:00 TATIANNA villarreal [facility] 2022-04-20 2022-04-20 (TEL) STLMLC STLMLC [id number] Co mmon 00:00:00 00:00:00 [facility] 2022-03-28 2022-03-28 OL DIG E/M STLMLC STLMLC [id number] [facility] 00:00:00 00:00:00 SVC 21+ [facility] MIN - [facility] 2021-12-15 2021-12-15 OFFICE STLMLC STLMLC [id number] Co mmon 00:00:00 00:00:00 VISIT [place] HEATH PT - CHI LEVEL 4 [facility] 2021-12-05 2021-12-05 (TEL) STLMLC STLMLC [id number] Co mmon 00:00:00 00:00:00 [facility] 2021-11-29 2021-11-29 Outpatient R JOSE, [facility] [id number] Univers 16:00:00 16:00:00 [employer] [facility] [employer] [facility] 2021-11-29 2021-11-29 Outpatient R JOSE, [facility] [id number] Univers 15:00:00 15:00:00 [facility] 2021-11-29 2021-11-29 Outpatient R JOSE, [facility] [id number] Univers 12:46:24 12:46:24 [employer] [facility] [facility] renata [facility] 2021-11-28 2021-11-28 Orders Doctor KULDEEP [id number] Univers 00:00:00 00:00:00 Only Unassigned, MADELIN [id number] [place]y of [place] [facility] [id number] [place] [phone] [address] 2021-11-27 2021-11-27 Orders Doctor KULDEEP [id number] Univers 00:00:00 00:00:00 Only Unassigned, MADELIN [id number] [place] [facility] [id number] [place] [phone] [address] 2021-11-02 2021-11-02 Outpatient R JOSE, [facility] [id number] Univers 13:00:00 13:37:[address] [facility] 2021-11-02 2021-11-02 Office [facility] [id number] Univers 13:00:00 13:37:36 Visit Tatianna YEH [id number] ity of [id number] PROFESS[place] [phone] Ri dical [facility] [address] [facility] 2021-11-02 2021-11-02 Outpatient Shayan GARCIA, [facility] [id number] Univers 13:00:00 13:37:36 TATIANNA ity o f [facility] 2021-11-02 2021-11-02 Orders Doctor KULDEEP [id number] Univers 00:00:00 00:00:00 Only Unassigned, MADELIN [id number] [place] [facility] [id number] [place] [phone] [address] 2021-10-17 2021-10-17 Orders Doctor KULDEEP [id number] Univers 00:00:00 00:00:00 Only Unassigned, MADELIN [id number] ity of [place] [facility] [id number] [place] [phone] [address] 2021-09-13 2021-09-13 OL DIG E/M STLMLC STLMLC [id number] [facility] 00:00:00 00:00:00 [facility] 21+ [facility] MIN - [facility] 2021-08-30 2021-08-30 OFFICE STLMLC STLMLC [id number] Co mmon 00:00:00 00:00:00 VISIT [facility] ESTAB PT - CHI LEVEL 4 [facility] 2021-05-01 2021-05-01 OL DIG E/M STLMLC STLMLC [id number] [facility] 00:00:00 00:00:00 [facility] - Spir it MIN - [facility] 2021-04-17 2021-04-17 OL DIG E/M STLMLC STLMLC [id number] Common 00:00:00 00:00:00 [facility] - Spir it MIN - [facility] 2021-04-17 2021-04-17 OFFICE STLMLC STLMLC [id number] Co mmon 00:00:00 00:00:00 VISIT NEW Spir it PT LEVEL 3 - [facility] 2021-03-15 2021-03-15 Imm/Inj Nurse, Adc Pob Immunization [facility] [id number] [facility] 09:28:09 09:28:42 Visit Christopher Lowery [id number] [facility] [place] [id number] [place] Kumar [phone] Ri dical [address] 2021-02-14 2021-02-14 Outpatient STLMLC STLMLC [id number] Common 00:00:00 00:00:00 [facility] 2020-11-29 2020-11-29 Outpatient Amelia-Mbayo VFP VFP [id number] [facility] 05:29:00 05:29:00 _A_AH [id number] [facility] Pract[facility] 2020-07-27 2020-07-27 Outpatient STLMLC STLMLC [id number] Common 00:00:00 00:00:00 [facility] 2020-07-12 2020-07-12 Outpatient STLMLC STLMLC [id number] [facility] 00:00:00 00:00:00 [facility] 2020-06-24 2020-06-24 Outpatient STLMLC STLMLC [id number] Common 00:00:00 00:00:00 [facility] 2020-06-16 2020-06-16 Outpatient STLMLC STLMLC [id number] Common 00:00:00 00:00:00 [facility] 2020-06-13 2020-06-13 Outpatient STLMLC STLMLC [id number] Common 00:00:00 00:00:00 [facility] 2020-03-29 2020-03-29 Outpatient STLMLC STLMLC [id number] Common 00:00:00 00:00:00 [facility] 2019-09-02 2019-09-02 Outpatient Ige-Odunuga VFP VFP [id number] 07:15:00 07:15:00 _J_AH [id number] Family Practic e 2019-09-02 2019-09-02 Outpatient Ige[place] VFP VFP [id number] Village 07:15:00 07:15:00 _J_AH [id number] Family Practic e 2019-08-11 2019-08-11 [facility] [id number] Common 08:20:00 08:20:[address] [facility] 2019-08-03 2019-08-03 Out[facility] [id number] Common 16:22:00 16:22:[address] [facility] 2019-06-17 2019-06-17 Out[facility] [id number] Common 09:54:00 09:54:[address] [facility] 2019-05-11 2019-05-11 Outpatient [facility] [id number] Common 09:20:00 09:20:[address] [facility] 2019-01-06 2019-01-06 Out[facility] [id number] Common 14:40:00 14:40:[address] [facility] 2018-08-27 2018-08-27 Outpatient [facility] [id number] Common 08:15:00 08:15:[address] [facility] 2018-05-27 2018-05-27 Outpatient [facility] [id number] Common 09:15:00 09:15:[address] [facility] 2018-01-30 2018-01-30 Outpatient [facility] [id number] Common 10:00:00 10:00:[address] [facility] 2017-10-24 2017-10-24 Out[facility] [id number] Common 15:30:00 15:30:[address] [facility] Results Test Description Test Time Test Comments Results Result Comments Source Renal Renal Ultrasound-Complete Ultrasound-Comple te
[2022-05-06] MEDS ORDERED: ONDANSETRON 4 MG/2 ML VIAL ONE (10:59)
[2022-05-06] MEDS ORDERED: NA CHLORIDE 0.9% 1,000 ML ONE (10:59)
[2022-05-06 11:20] LABS: Absolute Lymphocytes (CBC) 1.5 K/uL (0.7-4.9); Bilirubin Total 0.4 mg/dL (0.2-1.0); Hematocrit 39.1 % (36.0-45.0); MCV 90.6 fL (80-100); MPV 8.7 fL (7.6-11.3); Potassium 3.6 mmol/L (3.5-5.1); RBC Red Blood Cell Count 4.32 M/uL (3.86-4.86)
[2022-05-06 11:22] LABS: Urine Blood 1+ (Negative); Urine Glucose Negative (Negative); Urine Protein Negative (Negative); Urine Specific Gravity <=1.005 (1.005-1.030)
--- NOTE | 2022-05-06 12:27 | RAD REPORT ---
EXAM DESCRIPTION: CTAbdomen Pelvis W Contrast - 05/06/2022 12:13 pm CLINICAL HISTORY: abdominal pain, diarrhea COMPARISON: Abdomen Pelvis W Contrast dated 01/06/2021 TECHNIQUE: CT of the abdomen and pelvis was performed. All CT scans are performed using dose optimization technique as appropriate and may include automated exposure control or mA/KV adjustment according to patient size. FINDINGS: Lower chest: No acute abnormality. Liver: Hepatic steatosis. Biliary: No biliary ductal dilatation. Stomach: No significant focal abnormality. Duodenum: No significant focal abnormality. Pancreas: No significant abnormality. Spleen: No significant abnormality. Adrenal: No suspicious lesions. Kidney/ureter: Mild hydroureteronephrosis bilaterally. Renal vascular calcifications are present bila terally. 5 mm stone in the lower pole left kidney. Other small calculi versus vascular calcifications . . Too small to characterize and/or benign appearing renal lesions are noted. Retroperitoneum: No retroperitoneal adenopathy. Vascular: No aneurysm. Atherosclerosis. Bowel: Scattered air-fluid levels present within the colon. No bowel obstruction.. Normal appendix. Peritoneum: No ascites or free air. Bladder: Large bladder calculi noted near both of the UVJ spur. On the right, the calculus measures 3 .2 cm. On the left, it measures 1.3 cm. Reproductive: Probably calcified uterine fibroid. Bones: No acute fracture. Other: n/a IMPRESSION: 1. Moderate contents within the colon consistent with diarrheal disease/malabsorptive pr ocess. No bowel obstruction. 2. Chronic large bilateral bladder calculi near the ureterovesical junctions with mild bilateral hydr oureteronephrosis.
--- NOTE | 2022-05-06 12:54 | EDPHYS ---
Physician Documentation [facility] Name: Rosalia Perez Age: 71 yrs Sex: Female : 1950 Arrival Date: 05/06/2022 Time: 10:18 Bed 18 Private MD: Ratna Davis ED Physician Aamir Nieves HPI: 05/06 10:25 This 71 yrs old Female presents to ER via Ambulatory with complaints of jmm Diarrhea. 10:25 The patient presents to the emergency department with nausea, diarrhea, abdominal pain. jmm Possible causes: unknown. The symptoms are aggravated by nothing. The symptoms are alleviated by nothing. Associated signs and symptoms: Pertinent positives: abdominal pain, diarrhea. This is a 71 year old female with a history of dm, hlp, htn that presents to the ED with complaints of diarrhea which has been ongoing for approx a month. Patient prescribed oral abx with no relief. . Historical: - Allergies: 10:41 No Known Allergies; jd3 - Home Meds: 10:41 BLOOD PRESSURE PILL [Active]; cholesterol meds [Active]; jd3 - PMHx: 10:41 breast cancer; Diabetes - NIDDM; Hyperlipidemia; Hypertension; jd3 - PSHx: 10:41 left mastectomy; jd3 - Immunization history:: Adult Immunizations up to date, Client reports receiving the 2nd dose of the Covid vaccine, Flu vaccine is up to date. - Social history:: Smoking status: Patient reports the use of cigarette tobacco products, smokes one pack cigarettes per day. ROS: 10:25 Constitutional: Positive for fatigue. jmm 10:25 Abdomen/GI: Positive for abdominal pain. 10:25 Abdomen/GI: Positive for diarrhea. 10:25 All other systems are negative. Exam: 10:25 Constitutional: This is a well developed, well nourished patient who is awake, alert, jmm and in no acute distress. Head/Face: atraumatic. Eyes: EOMI, no conjunctival erythema appreciated ENT: Moist Mucus Membranes Neck: Trachea midline, Supple Chest/axilla: Normal chest wall appearance and motion. Cardiovascular: Regular rate and rhythm. No edema appreciated Respiratory: Normal respirations, no respiratory distress appreciated 10:25 Back: Normal ROM Skin: General appearance color normal MS/ Extremity: Moves all extremities, no obvious deformities appreciated, no edema noted to the lower extremities Neuro: Awake and alert Psych: Behavior is normal, Mood is normal, Patient is cooperative and pleasant 10:25 Abdomen/GI: Inspection: abdomen appears normal, Bowel sounds: normal, Palpation: abdomen is soft and non-tender, in all quadrants. Vital Signs: 10:42 BP 161 / 62; Pulse 77; Resp 16 S; Temp 98.3(O); Pulse Ox 100% on R/A; Weight 63.5 kg jd3 (R); Height 5 ft. 5 in. (165.10 cm) (R); Pain 4/10; 11:29 BP 162 / 70; Pulse 75; Resp 17 S; Pulse Ox 100% on R/A; jd3 12:29 BP 148 / 65; Pulse 73; Resp 16 S; Pulse Ox 100% on R/A; jd3 10:42 Body Mass Index 23.30 (63.50 kg, 165.10 cm) jd3 MDM: 10:25 Patient medically screened. [facility] 12:52 Data reviewed: vital signs, nurses notes. [facility] 12:52 Counseling: I had a detailed discussion with the patient and/or guardian regarding: the [facility] historical points, exam findings, and any diagnostic results supporting the discharge/admit diagnosis, lab results, radiology results, the need for outpatient follow up, smoking cessation. ED course: Patient advised to follow up with gi for reevaluation. Patient otherwise given strict return precautions. Patient understood and agrees with the plan of care. . 05/06 10:46 Order name: CBC with Diff; Complete Time: 11:24 [facility] 05/06 10:46 Order name: CMP; Complete Time: 11:20 [facility] 05/06 10:46 Order name: Lipase; Complete Time: 11:20 [facility] 05/06 11:19 Order name: CT Abd/Pelvis - IV Contrast Only [facility] 05/06 11:22 Order name: Urine Dipstick-Ancillary; Complete Time: 11:24 [facility] 05/06 11:23 Order name: Abdomen ; Complete Time: 12:32 [facility] 05/06 10:46 Order name: IV Saline Lock; Complete Time: 10:58 [facility] 05/06 10:46 Order name: Labs collected and sent; Complete Time: 10:58 [facility] 05/06 10:46 Order name: Urine Dipstick-Ancillary (obtain specimen); Complete Time: 11:29 [facility] Administered Medications: 11:09 Drug: NS 0.9% 1000 ml Route: IV; Rate: 1 bolus; Site: right wrist; jd3 13:03 Follow up: Response: No adverse reaction; IV Status: Completed infusion; IV Intake: jd3 1000ml 11:09 Drug: Zofran (Ondansetron) 4 mg Route: IVP; Site: right wrist; jd3 12:00 Follow up: Response: No adverse reaction jd3 Disposition: 15:09 Co-signature as Attending Physician, Aamir Nieves MD. rn Disposition Summary: 05/06/22 12:53 Discharge Ordered Location: Home [facility] Condition: Stable [facility] Diagnosis - Diarrhea, unspecified [facility] Followup: [facility] - With: Private Physician - When: 1 - 2 days - Reason: Recheck today's complaints, Continuance of care, Re-evaluation by your physician Discharge Instructions: - Discharge Summary Sheet jm - Food Choices to Help Relieve Diarrhea, Adult jm - Probiotics [facility] Forms: - Medication Reconciliation Form [facility] - Thank You Letter [facility] - Antibiotic Education [facility] - Prescription Opioid Use [facility] Prescriptions: - dicyclomine 20 mg Oral Tablet - take 1 tablet by ORAL route 4 times per day; 30 tablet; Refills: 0, Product [facility] Selection Permitted Signatures: Dispatcher [employer] Hemal Bermudez PA PA jmm Nieto, Roman, MD MD rn Davies, Jonathon, RN RN jd3
--- NOTE | 2022-05-06 12:54 | ER ---
Nurse's Notes [facility] Name: Rosalia Perez Age: 71 yrs Sex: Female : 1950 Arrival Date: 05/06/2022 Time: 10:18 Bed 18 Private MD: Ratna Davis Diagnosis: Diarrhea, unspecified Presentation: 05/06 10:39 Chief complaint: Patient states: "I have been having diarrhea for about a month now. I jd3 saw my GI and he put me on antibiotics, but it does not seem to be working. I have a pictures schedules here with a CAT scan on Saturday, but I am feeling weaker and I don't think I can make it till Saturday.". Coronavirus screen: At this time, the client does not indicate any symptoms associated with coronavirus-19. Ebola Screen: No symptoms or risks identified at this time. Initial Sepsis Screen: Does the patient meet any 2 criteria? No. Patient's initial sepsis screen is negative. Does the patient have a suspected source of infection? No. Patient's initial sepsis screen is negative. Risk Assessment: Do you want to hurt yourself or someone else? Patient reports no desire to harm self or others. Onset of symptoms was April 06, 2022. 10:39 Method Of Arrival: Ambulatory jd3 10:39 Acuity: JUDE 3 jd3 Historical: - Allergies: 10:41 No Known Allergies; jd3 - Home Meds: 10:41 BLOOD PRESSURE PILL [Active]; cholesterol meds [Active]; jd3 - PMHx: 10:41 breast cancer; Diabetes - NIDDM; Hyperlipidemia; Hypertension; jd3 - PSHx: 10:41 left mastectomy; jd3 - Immunization history:: Adult Immunizations up to date, Client reports receiving the 2nd dose of the Covid vaccine, Flu vaccine is up to date. - Social history:: Smoking status: Patient reports the use of cigarette tobacco products, smokes one pack cigarettes per day. Screenin:45 Abuse screen: Denies threats or abuse. Nutritional screening: No deficits noted. jd3 Tuberculosis screening: No symptoms or risk factors identified. Fall Risk Ambulatory Aid- None/Bed Rest/Nurse Assist (0 pts). Gait- Normal/Bed Rest/Wheelchair (0 pts) Mental Status- Oriented to own ability (0 pts). Total [place] Fall Scale indicates No Risk (0-24 pts). Assessment: 10:43 General: Appears in no apparent distress. comfortable, Behavior is calm, cooperative, jd3 appropriate for age, Reports fatigue for 1-2 days. Pain: Complains of pain in abdomen Quality of pain is described as crampy, sharp. Neuro: Alfonso Agitation-Sedation Scale (RASS): 0 - Alert and Calm Level of Consciousness is awake, alert, obeys commands, Oriented to person, place, time, situation. Cardiovascular: Denies chest pain, Capillary refill < 3 seconds Patient's skin is warm and dry. Respiratory: Airway is patent Respiratory effort is even, unlabored, Respiratory pattern is regular, symmetrical, Denies cough, shortness of breath. GI: Abdomen is non-distended, Abd is soft and non tender X 4 quads. Reports diarrhea. : No signs and/or symptoms were reported regarding the genitourinary system. EENT: No signs and/or symptoms were reported regarding the EENT system. Derm: Skin is intact, Skin is dry, Skin is normal, Skin temperature is warm. Musculoskeletal: Circulation, motion, and sensation intact. Range of motion: intact in all extremities. 11:29 Reassessment: Patient appears in no apparent distress at this time. No changes from jd3 previously documented assessment. Patient and/or family updated on plan of care and expected duration. Pain level reassessed. Patient is alert, oriented x 3, equal unlabored respirations, skin warm/dry/pink. 12:29 Reassessment: Patient appears in no apparent distress at this time. No changes from jd3 previously documented assessment. Patient and/or family updated on plan of care and expected duration. Pain level reassessed. Patient is alert, oriented x 3, equal unlabored respirations, skin warm/dry/pink. 13:02 Reassessment: Patient appears in no apparent distress at this time. Patient and/or [facility] family updated on plan of care and expected duration. Pain level reassessed. Patient is alert, oriented x 3, equal unlabored respirations, skin warm/dry/pink. Vital Signs: 10:42 BP 161 / 62; Pulse 77; Resp 16 S; Temp 98.3(O); Pulse Ox 100% on R/A; Weight 63.5 kg jd3 (R); Height 5 ft. 5 in. (165.10 cm) (R); Pain 4/10; 11:29 BP 162 / 70; Pulse 75; Resp 17 S; Pulse Ox 100% on R/A; jd3 12:29 BP 148 / 65; Pulse 73; Resp 16 S; Pulse Ox 100% on R/A; jd3 10:42 Body Mass Index 23.30 (63.50 kg, 165.10 cm) jd3 ED Course: 10:18 Patient arrived in ED. mr 10:19 Ratna Davis MD is Private Physician. mr 10:20 Hemal Dupont PA is PHCP. jmm 10:20 Aamir Nieves MD is Attending Physician. jmm 10:26 Van Rodriguez RN is Primary Nurse. jd3 10:41 Triage completed. jd3 10:42 Arm band placed on. jd3 10:45 Inserted saline lock: 22 gauge in right wrist, using aseptic technique. Blood collected.jd3 10:46 Patient has correct armband on for positive identification. Bed in low position. Call j light in reach. Side rails up X 1. Adult w/ patient. Pulse ox on. NIBP on. 12:14 Abdomen In Process Unspecified. EDMS 12:36 CT Abd/Pelvis - IV Contrast Only Sent. eb 13:02 No provider procedures requiring assistance completed. IV discontinued, intact, jd3 bleeding controlled, No redness/swelling at site. Pressure dressing applied. Administered Medications: 11:09 Drug: NS 0.9% 1000 ml Route: IV; Rate: 1 bolus; Site: right wrist; jd3 13:03 Follow up: Response: No adverse reaction; IV Status: Completed infusion; IV Intake: jd3 1000ml 11:09 Drug: Zofran (Ondansetron) 4 mg Route: IVP; Site: right wrist; jd3 12:00 Follow up: Response: No adverse reaction jd3 Medication: 10:45 VIS not applicable for this client. jd3 Intake: 13:03 IV: 1000ml; Total: 1000ml. jd3 Outcome: 12:53 Discharge ordered by . jmm 13:02 Discharged to home ambulatory, with family. jd3 13:02 Condition: stable 13:02 Discharge instructions given to patient, family, Instructed on discharge instructions, follow up and referral plans. medication usage, Demonstrated understanding of instructions, follow-up care, medications, Prescriptions given X 1. 13:03 Patient left the ED. jd3 Signatures: Dispatcher [employer] EDMS Hemal Dupont PA PA jmm Rivera, Mary mr Davies, Jonathon RN RN jd3 Wendy Urbano Corrections: (The following items were deleted from the chart) 11:10 11:09 NS 0.9% 1000 ml IV at 1 bolus in right antecubital jd3 jd3 11:10 11:09 Zofran (Ondansetron) 4 mg IVP in right antecubital jd3 jd3
[2022-05-06 13:16] VITALS: TEMP 98.3; O2SAT 100
[2022-05-06 13:17] VITALS: BP 148/65
== END 2022-05-06 13:03 | disposition home or self-care (01) ==
LOC: ER 10:15
DX: R19.7 Diarrhea, unspecified (principal); I10 Essential (primary) hypertension; F17.210 Nicotine dependence, cigarettes, uncomplicated; Z90.12 Acquired absence of left breast and nipple
CPT/HCPCS: 96361; 85025; 36415; 81003; 83690; 80053; 74177; 96374; 99284; Q9967; J7030; J2405